=== PATIENT | female | born 1935 | race Caucasian/White ===

== ENCOUNTER 2023-12-13 17:00 | Emergency (ER) | payer MEDICARE, OTHER, SELFPAY ==
[2023-12-13] VITALS (8 sets, daily range): BP systolic 118–169; BP diastolic 58–89; BMI 26.6
[2023-12-13 17:18] LABS: % Basophils 0.4 % (0-2); % Eosinophils 1.8 % (0-6); % Immature Granulocytes 0.4 % (0-0.5); % Lymphocytes 12.7 % (20.5-51.1); % Monocytes 7.3 % (1.7-9.3); % Neutrophils 77.4 % (42.2-75.2); Absolute Eosinophils 0.2 10^3/uL (0-0.7); Absolute Lymphocytes 1.4 10^3/uL (1.2-3.4); Absolute Monocytes 0.8 10^3/uL (0.1-0.6); Absolute Neutrophils 8.3 10^3/uL (1.4-6.5); Hematocrit 38.4 % (37.0-47.0); Hemoglobin 12.6 g/dL (12.0-16.0); Mean Corp Hgb Conc. 32.8 g/dL (33.0-37.0); Mean Corpuscular Hgb 27.3 pg (27.0-31.0); Mean Corpuscular Volume 83.1 fL (81.0-99.0); Mean Platelet Volume 10.6 fL (7.4-10.4); Nucleated Red Blood Cells % 0 %; Platelet Count 291 10^3/uL (130-400); Red Blood Cell Count 4.62 10^6/uL (4.20-5.40); White Blood Cell Count 10.7 10^3/uL (4.8-10.8)
[2023-12-13 17:50] LABS: ALT (SGPT) 16 U/L (0-35); AST (SGOT) 32 U/L (14-36); Albumin 4.5 g/dl (3.5-5.0); Alkaline Phosphatase 88 U/L (38-126); Blood Urea Nitrogen 33 mg/dl (7-17); Carbon Dioxide 27 mmol/L (22-30); Chloride 100 mmol/L (98-107); Glucose 206 mg/dl (70-99); Lipase 120 U/L (23-300); Potassium 4.5 mmol/L (3.5-5.1); Sodium 139 mmol/L (135-145); Total Bilirubin 0.4 mg/dl (0.2-1.3); Total Protein 7.2 g/dl (6.3-8.2); eGFR > 60.00
--- NOTE | 2023-12-13 17:57 | EDRN ---
this RN entered the pts room and before this RN could speak and introduce this RN's self the pt stated, 'Oh good you're here please take me to my CT scan now thank you', this RN asked for more information about why the pt is here and the pt stated,
'I have a script from my doctor in [place] and he said to get a CT scan of my abdomen right away if i'm having pain and nauseous and throwing up, i also have a bloated stomach but i have been having some problems with constipation so i would like a
doctor to come in right now thank you', this RN notified Dr. Martinez, the pt was placed on thr monitor and VS WNL, no c/o pain currently, abdomen is distended, no tenderness on palpation, the pt is resting in stretcher in the lowest position, side
rails up x2, call morgan within reach, HOB elevated, no s/s of distress, will continue to monitor the pt closely and await for the provider to see the pt
[2023-12-13 18:15] LABS: Creatine Phosphokinase 40 U/L (30-135)
--- NOTE | 2023-12-13 18:17 | EDRN ---
currently still waiting for a provider to come see the pt
[2023-12-13] MEDS: NSS 500 IV (19:27)
--- NOTE | 2023-12-13 20:06 | ED.GENMED ---
History of Present Illness
<Grecia Hogan PA-C - Last Filed: 12/17/23 07:53>
General
Chief Complaint: Abdominal Pain
Source: patient
Exam Limitations: none
Time Seen by Provider: 12/13/23 18:25
Nursing documentation reviewed up to this point in time: agreed with
History of Present Illness
History of Present Illness:
pt is a 88 y/o F h/o afib
unclear medical history, says she takes blood thinners, htn, hld
has had 4 episodes since june 2023 of severe lower abd pain followed by vomiting that she has seen a GI for in [place] who told her that she should have a ct scan as soon as her symptoms start the next time. pt says she has a prescription for the CT
and it says to R/O obstruction
pt says she isn't always sure waht the pain is when it begins becuase it is usually gradual but then ultimately becomes intsne and is always followed by vomiting
today it started around 11 am while she was reading and gradually got worse over about aan hour
then she vomited about 10 times
once the vomiting stopped, she came to the ER but while waiting her pain resolved and she feels fine
she has had a ct scan the following day followin steven episode and she had no findings
she is upset that she had to wait for this scan and now her pain is gone but still is requesting it
no previous bowel obstructions, no previuos abd surgeries
no fever, diarrhea
has had some constipation, used miralax yesteryda
no urinary sypmtmos
Past History
<Grecia Hogan PA-C - Last Filed: 12/17/23 07:53>
Past History
ED Past Medical History: Arrthythmia, HTN and Psychiatric
Social History
Tobacco: Non-smoker
Alcohol: Daily
Drug: None
Personal:
Living: with family
Employment: Retired
Family History
Family History: Diabetes and CAD
Review of Systems
<Grecia Hogan PA-C - Last Filed: 12/17/23 07:53>
Review of Systems
Allergies reviewed?: Yes
All Other Systems: Not applicable
Phy Exam
<Grecia Hogan PA-C - Last Filed: 12/17/23 07:53>
Physical Exam
Physical Exam:
GENERAL: Alert , in no apparent distress, well appearing
EYE: pupils equal and reactive
NECK: Supple
ENT: o/p clr, mmm.
CARDIAC: Regular rate and rhythm .
LUNGS: Clear breath sounds bilaterally, no acute respiratory distress, no wheezes/rales/rhonchi
ABDOMEN: Soft, mild distension, without focal tenderness, no r/g, no cvat, normal bowel sounds
NEUROLOGICAL: Alert and oriented, no focal neuro deficits
SKIN: Warm and dry, skin intact.
MUSCULOSKELETAL: No edema, well perfused. neg devorah's sign
PSYCH: Normal and appropriate interaction.
Course
<Grecia Hogan PA-C - Last Filed: 12/17/23 07:53>
Orders/Labs/Results
Orders:
Orders
12/13/23 17:12
Complete Blood Count/With Diff Urgent
Comprehensive Metabolic Panel Urgent
Creatine Phosphokinase Urgent
Comment: ADD ON
Lipase Urgent
12/13/23 17:52
Add On- LAB Urgent
Tests Added?: CPK
12/13/23 19:10
CT Abd/Pel (IV only)-DH only Urgent
Comment:
Reason For Exam: VOMITING, LLQ PAIN
0.9% Sodium Chloride 500 ml [Nss] 500 ml IV BOLUS
12/13/23 20:21
Urinalysis Reflex To Culture Urgent
Date Specimen was Collected: 12/13/23
Time Specimen was Collected: 20:18
Urine Microscopic Reflex Cult Urgent
Urine Culture Urgent
ROHAN Source: U
Specimen Description:
Obtained by: Random
Date Specimen was Collected: 12/13/23
Time Specimen was Collected: 20:18
12/13/23 21:33
CefTRIAXone [Rocephin] 1,000 mg IV NOW STA
Abnormal Lab Results
12/13/23 12/13/23
17:12 20:21
MCHC 32.8 L g/dL
(33.0-37.0)
MPV 10.6 H fL
(7.4-10.4)
Absolute Neuts (auto) 8.3 H 10^3/uL
(1.4-6.5)
Absolute Monos (auto) 0.8 H 10^3/uL
(0.1-0.6)
Neutrophils % 77.4 H %
(42.2-75.2)
Lymphocytes % 12.7 L %
(20.5-51.1)
BUN 33 H mg/dl
(7-17)
Glucose 206 H mg/dl
(70-99)
Ur Occult Blood Reflex Trace A
(Negative)
Urine Nitrite (Reflex) Positive A
(Negative)
Leukocyte Esterase Rfl 2+ A
(Negative)
Urine RBC 16-20 A /HPF
(0-2)
Urine WBC (Reflex) 60-70 A /HPF
(0-5)
Urine Bacteria (Reflex) Many A
(Negative)
12/13/23 17:12
12/13/23 17:12
Vital Signs
Initial and Last Documented VS:
Initial Vital Signs
Temp Pulse Resp BP Pulse Ox
98 F 72 16 154/75 98
12/13/23 17:03 12/13/23 17:03 12/13/23 17:03 12/13/23 17:03 12/13/23 17:03
Last Documented Vital Signs
Temp Pulse Resp BP Pulse Ox
98.5 F 67 17 155/61 95
12/13/23 17:57 12/13/23 22:00 12/13/23 22:00 12/13/23 22:00 12/13/23 22:00
Sillt;Ambika Cramer PA-C - Last Filed: 12/13/23 23:23>
Orders/Labs/Results
Orders:
Orders
12/13/23 17:12
Complete Blood Count/With Diff Urgent
Comprehensive Metabolic Panel Urgent
Creatine Phosphokinase Urgent
Comment: ADD ON
Lipase Urgent
12/13/23 17:52
Add On- LAB Urgent
Tests Added?: CPK
12/13/23 19:10
CT Abd/Pel (IV only)-DH only Urgent
Comment:
Reason For Exam: VOMITING, LLQ PAIN
0.9% Sodium Chloride 500 ml [Nss] 500 ml IV BOLUS
12/13/23 20:21
Urinalysis Reflex To Culture Urgent
Date Specimen was Collected: 12/13/23
Time Specimen was Collected: 20:18
Urine Microscopic Reflex Cult Urgent
Urine Culture Urgent
ROHAN Source: U
Specimen Description:
Obtained by: Random
Date Specimen was Collected: 12/13/23
Time Specimen was Collected: 20:18
12/13/23 21:33
CefTRIAXone [Rocephin] 1,000 mg IV NOW STA
Abnormal Lab Results
12/13/23 12/13/23
17:12 20:21
MCHC 32.8 L g/dL
(33.0-37.0)
MPV 10.6 H fL
(7.4-10.4)
Absolute Neuts (auto) 8.3 H 10^3/uL
(1.4-6.5)
Absolute Monos (auto) 0.8 H 10^3/uL
(0.1-0.6)
Neutrophils % 77.4 H %
(42.2-75.2)
Lymphocytes % 12.7 L %
(20.5-51.1)
BUN 33 H mg/dl
(7-17)
Glucose 206 H mg/dl
(70-99)
Ur Occult Blood Reflex Trace A
(Negative)
Urine Nitrite (Reflex) Positive A
(Negative)
Leukocyte Esterase Rfl 2+ A
(Negative)
Urine RBC 16-20 A /HPF
(0-2)
Urine WBC (Reflex) 60-70 A /HPF
(0-5)
Urine Bacteria (Reflex) Many A
(Negative)
12/13/23 17:12
12/13/23 17:12
Vital Signs
Initial and Last Documented VS:
Initial Vital Signs
Temp Pulse Resp BP Pulse Ox
98 F 72 16 154/75 98
12/13/23 17:03 12/13/23 17:03 12/13/23 17:03 12/13/23 17:03 12/13/23 17:03
Last Documented Vital Signs
Temp Pulse Resp BP Pulse Ox
98.5 F 67 17 155/61 95
12/13/23 17:57 12/13/23 22:00 12/13/23 22:00 12/13/23 22:00 12/13/23 22:00
Sillt;Braulio Rosa PA-C - Last Filed: 12/16/23 07:23>
Orders/Labs/Results
Orders:
Orders
12/13/23 17:12
Complete Blood Count/With Diff Urgent
Comprehensive Metabolic Panel Urgent
Creatine Phosphokinase Urgent
Comment: ADD ON
Lipase Urgent
12/13/23 17:52
Add On- LAB Urgent
Tests Added?: CPK
12/13/23 19:10
CT Abd/Pel (IV only)-DH only Urgent
Comment:
Reason For Exam: VOMITING, LLQ PAIN
0.9% Sodium Chloride 500 ml [Nss] 500 ml IV BOLUS
12/13/23 20:21
Urinalysis Reflex To Culture Urgent
Date Specimen was Collected: 12/13/23
Time Specimen was Collected: 20:18
Urine Microscopic Reflex Cult Urgent
Urine Culture Urgent
ROHAN Source: U
Specimen Description:
Obtained by: Random
Date Specimen was Collected: 12/13/23
Time Specimen was Collected: 20:18
12/13/23 21:33
CefTRIAXone [Rocephin] 1,000 mg IV NOW STA
Abnormal Lab Results
12/13/23 12/13/23
17:12 20:21
MCHC 32.8 L g/dL
(33.0-37.0)
MPV 10.6 H fL
(7.4-10.4)
Absolute Neuts (auto) 8.3 H 10^3/uL
(1.4-6.5)
Absolute Monos (auto) 0.8 H 10^3/uL
(0.1-0.6)
Neutrophils % 77.4 H %
(42.2-75.2)
Lymphocytes % 12.7 L %
(20.5-51.1)
BUN 33 H mg/dl
(7-17)
Glucose 206 H mg/dl
(70-99)
Ur Occult Blood Reflex Trace A
(Negative)
Urine Nitrite (Reflex) Positive A
(Negative)
Leukocyte Esterase Rfl 2+ A
(Negative)
Urine RBC 16-20 A /HPF
(0-2)
Urine WBC (Reflex) 60-70 A /HPF
(0-5)
Urine Bacteria (Reflex) Many A
(Negative)
12/13/23 17:12
12/13/23 17:12
Vital Signs
Initial and Last Documented VS:
Initial Vital Signs
Temp Pulse Resp BP Pulse Ox
98 F 72 16 154/75 98
12/13/23 17:03 12/13/23 17:03 12/13/23 17:03 12/13/23 17:03 12/13/23 17:03
Last Documented Vital Signs
Temp Pulse Resp BP Pulse Ox
98.5 F 67 17 155/61 95
12/13/23 17:57 12/13/23 22:00 12/13/23 22:00 12/13/23 22:00 12/13/23 22:00
<Grecia Hogan PA-C - Last Filed: 12/17/23 07:53>
MDM/Problems Addressed
Differential Diagnosis Includes:
intussusception, gas pain, volvulus, kidney stone, obstruction
MDM/Problems Addressed:
88 y/o F
severe LLQ pain started gradually earlier today assoc with many episodes of vomiting and resolved
has had this pain before
no urinary sypmtoms
no fever/chills, dysuria, frequency
pt has been told to come get CT when the pain recurs
she has an unremarkable exam
urine appears positive
ct pending, signed out to mateusz burton
<Ambika Cramer PA-C - Last Filed: 12/13/23 23:23>
*Critical Care Note
Total Time (30-74mins, 75-104mins- exclusive of procedures): Not Applicable
<Grecia Hogan PA-C - Last Filed: 12/17/23 07:53>
Update Note
Update Note:
Assumed care of patient awaiting CT results. CT is negative for acute findings other than mild to moderate constipation. She was started on a course of cefdinir for a UTI and advised to f/u with her PCP. She was discharged in stable condition.
December 15 7:22 AM: Urine culture shows greater than 100,000 colony-forming units of gram-negative bacilli. This is a pulmonary result. Patient on cefdinir sensitivities pending
12/16: 750 - e coli shea sensitive, no treatment change
<Ambika Cramer PA-C - Last Filed: 12/13/23 23:23>
Update Note
Update Note:
Assumed care of patient awaiting CT results. CT is negative for acute findings other than mild to moderate constipation. She was started on a course of cefdinir for a UTI and advised to f/u with her PCP. She was discharged in stable condition.
<Braulio Rosa PA-C - Last Filed: 12/16/23 07:23>
Update Note
Update Note:
Assumed care of patient awaiting CT results. CT is negative for acute findings other than mild to moderate constipation. She was started on a course of cefdinir for a UTI and advised to f/u with her PCP. She was discharged in stable condition.
December 15 7:22 AM: Urine culture shows greater than 100,000 colony-forming units of gram-negative bacilli. This is a pulmonary result. Patient on cefdinir sensitivities pending
ED Attending Note
<Grecia Hogan PA-C - Last Filed: 12/17/23 07:53>
-
Portions of this chart may have been created with voice recognition software.� Occasional wrong word or��sound alike� substitutions may have occurred due to the inherent limitations of voice recognition software.
Discharge Plan
Departure
Patient Disposition: Home (Routine Discharge)
Date of Disposition: 12/13/23
Time of Disposition: 22:59
Patient with high blood pressure during this ER visit?: Yes
Discharge Problem:
UTI (urinary tract infection)
Instructions: Urinary Tract Infection, Adult ED
Prescriptions:
New
cefdinir 300 mg capsule
300 mg PO BID Qty: 14 0RF
No Action
Eliquis
Referrals:
UNKNOWN - PT NOT,INTERVIEWE [Family Provider] -
Activity Restrictions/Additional Instructions:
Take antibiotics as prescribed.
Please follow-up with your family doctor. Return to the ER with any worsening symptoms or fevers.
Interventions
Interventions:
*Risk Screen - Suicide Last Done: 12/13/23 17:57
*General Assessment Last Done: 12/13/23 17:57
*Neglect/Abuse Screening Last Done: 12/13/23 17:57
ED- Fall Risk Assessment Last Done: 12/13/23 17:57
*ED COVID-19 Vaccine History Last Done: 12/13/23 17:57
*Nursing Disposition Last Done: 12/13/23 23:06
CN-Rjlecw-Rycajjgfti Assessment Last Done: 12/13/23 17:57
Discharge Date and Time
Discharge Date/Time: 12/13/23 23:06
Print Language: GUAMANIAN
[2023-12-13 20:27] LABS: Urine Albumin Trace (Neg - Trace); Urine Bilirubin Negative (Negative); Urine Character Slightly Cloudy (Clear); Urine Color Yellow; Urine Glucose Negative (Negative); Urine Ketone Negative (Negative); Urine Leukocyte 2+ (Negative); Urine Nitrite Positive (Negative); Urine Occult Blood Trace (Negative); Urine Urobilinogen Negative (Neg - 1+)
[2023-12-13 20:36] LABS: Urine Bacteria Many (Negative); Urine Red Blood Cell 16-20 /HPF (0-2); Urine White Cell 60-70 /HPF (0-5)
[2023-12-13] MEDS: ROCEPHIN 1000 MG IV (22:04)
== END 2023-12-13 23:06 | disposition home or self-care (01) ==
LOC: EMR 17:00
PROVIDERS: Emergency Medicine; Physician Assistant; EMERGENCY PHYSICIAN Student in an Organized Health Care Education/Training Program
DX: N39.0 Urinary tract infection, site not specified (principal); B96.20 Unspecified Escherichia coli [E. coli] as the cause of diseases classified elsewhere; K59.00 Constipation, unspecified; I48.91 Unspecified atrial fibrillation; I10 Essential (primary) hypertension; E78.00 Pure hypercholesterolemia, unspecified; Z82.49 Family history of ischemic heart disease and other diseases of the circulatory system; Z83.3 Family history of diabetes mellitus
CPT/HCPCS: 99284; 96374; 74177; 80053; 81003; 81015; 82550; 83690; 85025; 87077; 87086; 87186; Q9967